=== PATIENT | female | born 1970 | race Caucasian/White ===

== ENCOUNTER 2017-05-21 19:01 | Emergency (ER) | payer MEDICARE, MEDICAID ==
[2017-05-21 19:39] VITALS: BP 136/66
--- NOTE | 2017-05-21 20:31 | UC ---
Complaint Female HPI - HPI Summary HPI Summary: Patient presents with CC of redness, itching and labial enlargement and white copious vaginal thick discharge. She was recently treated for BV and has recently had STD swabs taken which were negative. She notes to a "bacterial" odor. Denies fishy odor, but presented with that last week to her PCP. She states she has burning with urination. Denies fevers, sweats, chills or other signs of a systemic illness. Denies urinary symptoms or back pain. - History Of Current Complaint Chief Complaint: UCGU Stated Complaint: PERSONAL Time Seen by Provider: 05/21/17 19:41 Hx Obtained From: Patient Hx Last Menstrual Period: n/a Onset/Duration: Sudden Onset Timing: Constant Severity Initially: Mild Severity Currently: Mild Pain Intensity: 2 Character: Burning Aggravating Factor(s): Movement, [place], Urination Associated Signs And Symptoms: Positive: Vaginal Discharge - Risk Factors Ectopic Risk Factor: Negative Ovarian Torsion Risk Factor: Reproductive Age - Allergies/Home Medications Allergies/Adverse Reactions: Allergies Allergy/AdvReac Type Severity Reaction Status Date / Time Moxifloxacin [From Avelox] Allergy Intermediate respiratory Verified 05/21/17 19 :39 distress, hives Home Medications: Home Medications Biotin [Ultra Biotin] 5 mg PO DAILY 05/21/17 [History Confirmed 05/21/17] Cetirizine* [ZyrTEC 10 MG TAB*] 10 mg PO DAILY 05/21/17 [History Confirmed 05/21] buPROPion TAB* [Wellbutrin TAB*] 100 mg PO BID 05/21/17 [History Confirmed 05/21] PMH/Surg Hx/FS Hx/Imm Hx Previously Healthy: Yes Other History Of: Negative For: HIV, Hepatitis B, Hepatitis C - Surgical History Surgical History: Yes Surgery Procedure, Year, and Place: Brain aneurysms coils and stents 07/2008 [email or web address] Csection 1990, 2000 [place]. Tubal ligation 2000 - Family History Known Family History: Positive: Diabetes - Social History Occupation: Employed Full-time Lives: With Family Alcohol Use: None Substance Use Type: None Smoking Status (MU): Former Smoker Type: Cigarettes Amount Used/How Often: 25 Years Length of Time of Smoking/Using Tobacco: 1 PPD Have You Smoked in the Last Year: No When Did the Patient Quit Smoking/Using Tobacco: 2007 - Immunization History Most Recent Influenza Vaccination: Not the Season Review of Systems Constitutional: Negative Respiratory: Negative Cardiovascular: Negative Genitourinary: Dysuria, Hematuria, Frequency, Urgency Neurovascular: Negative Musculoskeletal: Negative Neurological: Negative Psychological: Negative Is Patient Immunocompromised?: No All Other Systems Reviewed And Are Negative: Yes Physical Exam Triage Information Reviewed: Yes Appearance: Well-Appearing, No Pain Distress, Well-Nourished Vital Signs: Initial Vital Signs Temp 99.8 F 05/21/17 19:34 Pulse 93 05/21/17 19:34 Resp 18 05/21/17 19:34 BP 136/66 05/21/17 19:34 Pulse Ox 100 05/21/17 19:34 Vital Signs Reviewed: Yes Eye Exam: Normal Eyes: Positive: Conjunctiva Clear Neck exam: Normal Neck: Positive: Supple, Nontender, No Lymphadenopathy Respiratory Exam: Normal Respiratory: Positive: Chest non-tender, Lungs clear, Normal breath sounds Musculoskeletal Exam: Normal Musculoskeletal: Positive: Strength Intact Psychological Exam: Normal Psychological: Positive: Normal Response To Family Skin Exam: Normal Complaint Female Dx - Course Course Of Treatment: patient is evaluated for possible yeast infection. She was recently tested for BV and STD's and tested positive for BV. After taking the medication for 1 week, she is now complaining of inflamed red, swollen labia with white discharge and a burning sensation. She states the area has a strong odor. Discussed treatment options. She would like to be treated again for both. She wants to defer any more testing at this time. She feels as though the BV did not clear up, but now is experiencing the yeast infection d/t antibiotic. Will treat again for BV and she is given fluconaxole (1 for now) and 1 for a whole treatment after completion of abx which includes 1 after and 1 3 days after. She is ok with discharge. - Differential Dx/Diagnosis Differential Diagnosis/HQI/PQRI: Renal Colic, Ureteral Stone, Urinary Tract Infection Provider Diagnoses: YEAST INFECTION Discharge - Discharge Plan Condition: Stable Disposition: HOME Prescriptions: Fluconazole [Fluconazole 150 mg tab] 150 mg PO SEE INSTRUCTIONS #3 tab Metronidazole [Flagyl 500 MG TAB] 500 mg PO BID #14 tab Patient Education Materials: Vulvovaginal Candidiasis (ED) Referrals: Gene Hernandez MD [Primary Care Provider] - Additional Instructions: Follow up with PCP I have given you Flagyl - take this medication twice daily for 7 days Do not drink alcohol on this medication (it will make you feel sick ) - if it is making you ill - STOP TAKING!!!! Fluconzaole (take 1 now and 1 after completion of antibiotics as well as 1 tab 3 days after) Follow up if any symptoms worsen As discussed, we will defer at this time the STD swabs as you have just had these completed.
[2017-05-21] MEDS ORDERED: Fluconazole 150 MG (NF) 150 MG TAB PO ONE (20:36)
[2017-05-21] MEDS ORDERED: metroNIDAZOLE TAB* 250 MG PO ONE (20:37)
[2017-05-21] MEDS ORDERED: Fluconazole 100 MG TAB* TAB PO ONE (20:53)
== END 2017-05-21 21:01 | disposition home or self-care (01) ==
LOC: UCCORT 19:01
DX: B37.3 Candidiasis of vulva and vagina (principal); Z87.891 Personal history of nicotine dependence
CPT/HCPCS: 81003; 99212; A9270-GY; G0463